=== PATIENT | male | born 1975 | race Caucasian/White ===

== ENCOUNTER 2017-02-10 03:26 | Emergency (ER) | payer BC ==
[~2017-02-10] VITALS: Ht 175.3 cm; Wt 89.9 kg
[2017-02-10 04:22] LABS: HEMATOCRIT 44.4 % (38.0-50.0); HEMOGLOBIN 15.5 G/DL (12.5-16.6); MCH 31.1 PG (29.0-34.0); MCHC 34.9 G/DL (30.0-36.0); MCV 89.2 FL (86-99); PLATELET COUNT 266 K/uL (156-360); RBC DIS.WIDTH-SD 39.1 % (39-53); RED BLOOD COUNT 4.98 M/uL (4.00-5.50); WHITE BLOOD COUNT 8.3 K/uL (4.1-10.2)
[2017-02-10 04:31] LABS: ALBUMIN 4.3 g/dL (3.2-4.8); CHLORIDE 102 mEq/L (99-109); POTASSIUM 3.8 mEq/L (3.7-5.4); SODIUM 138 mEq/L (136-147)
[2017-02-10 04:33] LABS: GLUCOSE 121 mg/dL (70-99)
[2017-02-10 04:34] LABS: TOTAL PROTEIN 7.4 g/dL (6.4-8.3)
[2017-02-10 04:35] LABS: TOTAL BILIRUBIN 0.5 mg/dL (0.0-1.0)
[2017-02-10 04:37] LABS: ALKALINE PHOSPHATASE 60 IU/L (3-129); CREATININE 1.2 mg/dL (0.6-1.3); GFR ESTIMATE (CALCULATED) > 59 mL/min/ (58.99-99999)
[2017-02-10 04:38] LABS: UREA NITROGEN (BUN) 22 mg/dL (9-23)
[2017-02-10 04:39] LABS: AST (GOT) 23 IU/L (2-34); DIRECT BILIRUBIN 0.2 mg/dL (0.0-0.3)
[2017-02-10 04:40] LABS: ALT (GPT) 28 IU/L (3-49)
[2017-02-10 06:30] LABS: APPEARANCE CLEAR ((CLEAR)); BILIRUBIN NEGATIVE; BLOOD NEGATIVE; COLOR YELLOW ((YELLOW)); GLUCOSE (STRIP) NEGATIVE; KETONES NEGATIVE; LEUKOCYTES NEGATIVE; NITRITE NEGATIVE; PROTEIN (STRIP) NEGATIVE; SPECIFIC GRAVITY 1.018 (1.000-1.030); UCUL ADDED? NO; UROBILINOGEN 0.2 MG/DL (0.2-1.0)
[2017-02-10 07:38] LABS: TROP-I INTERPRETATION NEGATIVE; TROPONIN-I < 0.01 ng/mL (0.0-0.30)
[2017-02-10] MEDS ORDERED: MOTRIN800 MG PO (08:44)
[2017-02-10] MEDS ORDERED: ZOFRAN ODT4 MG PO (11:39)
[2017-02-10 11:58] VITALS: BP 121/89
== END 2017-02-10 11:59 | disposition home or self-care (01) ==
LOC: EME 03:26
PROVIDERS: Emergency Medicine
DX: E86.0 Dehydration (principal); A08.4 Viral intestinal infection, unspecified; K44.9 Diaphragmatic hernia without obstruction or gangrene; R06.02 Shortness of breath; R05 Cough; R00.0 Tachycardia, unspecified
CPT/HCPCS: 71046; 71275; 80048; 80076; 81003; 83605; 84484; 85027; 87040; 87502; 93005; 99281; 99285; J1885; J2405; J7030